=== PATIENT | female | born 1990 | race Caucasian/White ===

== ENCOUNTER 2018-01-14 12:19 | Emergency (ER) | END 2018-01-14 16:59 | disposition home or self-care (01) ==

== ENCOUNTER 2018-06-08 13:23 | Emergency (ER) | payer OTHER ==
[~2018-06-08] VITALS: Ht 160 cm; Wt 114.2 kg
[~2018-06-08 13:23] MED LIST: NAPR-985 PO; PNV1TABL43 PO
[2018-06-08 13:40] VITALS: RESP 20; Ht 160 cm; Wt 114.2 kg
[2018-06-08 14:02] VITALS: BP 144/76; PULSE 76
[2018-06-08] MEDS ORDERED: FAMOTIDINE 20 MG TAB PO STA (16:55)
[2018-06-08] MEDS ORDERED: ONDANSETRON (ODT) 4 MG TAB ODT STA (16:55)
--- NOTE | 2018-06-08 16:58 | ERD ---
ER Documentation Chief Complaint Chief Complaint c/o epigastric pain x1 day, had greasy, heavy food yesterday HPI 27-year-old female, previously healthy, presents to the emergency department, complaining of 1 day with sudden onset of epigastric pain, burning, constant, 6/10. After a heavy ingestion of tamales, beer and coffee. No treatment attempted at this time. The patient denies any previous history of liver disease or gallstones. No fever or chills, no nausea or vomiting. No diarrhea or constipation. ROS All systems reviewed and are negative except as per history of present illness. Medications Home Meds Active Scripts Acetaminophen* (Tylenol*) 325 Mg Tablet, 2 TAB PO Q8 PRN for PAIN AND OR ELEVATED TEMP, #20 TAB Prov:KEVON URIARTE MD 06/08/18 Ranitidine Hcl* (Zantac*) 150 Mg Tablet, 150 MG PO BID PRN for EPIGASTRIC PAIN, #30 TAB Prov:KEVON URIARTE MD 06/08/18 Naproxen* (Naprosyn*) 500 Mg Tablet, 500 MG PO BID PRN for PAIN AND/OR INFLAMMATION, #30 TAB Prov:JOLIE BRIGHT PA-C 01/14/18 Reported Medications Vit/Fe Fumarate/Fa* ( Vitamin Tablet*) 1 Tab Tablet, 1 TAB PO DAILY 06/23/13 Allergies Allergies: Coded Allergies: No Known Drug Allergy (Verified Allergy, Unknown, 03/14/15) PMhx/Soc Medical and Surgical Hx: pt denies Medical Hx, pt denies Surgical Hx History of Surgery: No Anesthesia Reaction: No Hx Neurological Disorder: No Hx Respiratory Disorders: No Hx Cardiac Disorders: No Hx Psychiatric Problems: No Hx Miscellaneous Medical Probl: No Hx Alcohol Use: Yes (occasional) Hx Substance Use: Yes (smokes marijuana daily) Hx Tobacco Use: No Physical Exam Vitals Vital Signs Date Temp Pulse Resp B/P (MAP) Pulse Ox O2 O2 Flow FiO2 Time Delivery Rate 06/08/18 76 144/76 14:02 (98) 06/08/18 98.6 87 20 171/95 99 13:40 (120) Physical Exam Const: No acute distress Head: Atraumatic Eyes: Normal Conjunctiva ENT: Normal External Ears, Nose and Mouth. Neck: Full range of motion. No meningismus. Resp: Clear to auscultation bilaterally Cardio: Regular rate and rhythm, no murmurs Abd: Soft, non tender, non distended. Normal bowel sounds Skin: No petechiae or rashes Back: No midline or flank tenderness Ext: No cyanosis, or edema Neur: Awake and alert Psych: Normal Mood and Affect Result Diagram: 06/08/18 1711 06/08/18 1711 Results 24 hrs Laboratory Tests Test 06/08/18 17:11 06/08/18 17:12 White Blood Count 13.0 10^3/ul Red Blood Count 5.42 10^6/ul Hemoglobin 15.4 g/dl Hematocrit 47.1 % Mean Corpuscular Volume 86.9 fl Mean Corpuscular Hemoglobin 28.4 pg Mean Corpuscular Hemoglobin Concent 32.7 g/dl Red Cell Distribution Width 13.7 % Platelet Count 281 10^3/UL Mean Platelet Volume 10.4 fl Immature Granulocytes % 0.400 % Neutrophils % 67.8 % Lymphocytes % 25.9 % Monocytes % 5.2 % Eosinophils % 0.1 % Basophils % 0.6 % Nucleated Red Blood Cells % 0.0 /100WBC Immature Granulocytes # 0.050 10^3/ul Neutrophils # 8.8 10^3/ul Lymphocytes # 3.4 10^3/ul Monocytes # 0.7 10^3/ul Eosinophils # 0.0 10^3/ul Basophils # 0.1 10^3/ul Nucleated Red Blood Cells # 0.0 10^3/ul Bedside Urine pH (LAB) 7.0 Bedside Urine Protein (LAB) Negative Bedside Urine Glucose (UA) Negative Bedside Urine Ketones (LAB) 1+ Bedside Urine Blood 1+ Bedside Urine Nitrite (LAB) Negative Bedside Urine Leukocyte Esterase (L Negative Sodium Level 142 mmol/L Potassium Level 3.9 mmol/L Chloride Level 106 mmol/L Carbon Dioxide Level 25 mmol/L Anion Gap 11 Blood Urea Nitrogen 8 mg/dl Creatinine 0.58 mg/dl Est Glomerular Filtrat Rate mL/min > 60 mL/min Glucose Level 109 mg/dl Calcium Level 10.1 mg/dl Total Bilirubin 0.3 mg/dl Direct Bilirubin 0.00 mg/dl Indirect Bilirubin 0.3 mg/dl Aspartate Amino Transf (AST/SGOT) 22 IU/L Alanine Aminotransferase (ALT/SGPT) 17 IU/L Alkaline Phosphatase 136 IU/L Total Protein 8.3 g/dl Albumin 4.9 g/dl Globulin 3.40 g/dl Albumin/Globulin Ratio 1.44 Lipase 120 U/L POC Beta HCG, Qualitative NEGATIVE Current Medications Medications Dose Sig/Shad Start Time Status Last (Trade) Ordered Route PRN Stop Time Admin Dose Reason Admin Famotidine 20 mg ONCE STAT 06/08/18 DC 06/08/18 (Pepcid) PO 16:55 06/08/18 17:15 17:00 Simethicone 160 mg ONCE ONCE 06/08/18 DC 06/08/18 (Mylicon) PO 17:00 06/08/18 17:15 17:01 Ondansetron 8 mg ONCE STAT 06/08/18 DC 06/08/18 HCl (Zofran ODT 16:55 06/08/18 17:15 Odt) 17:00 Patient: MIGUEL A HARRINGTON : 1990 Age: 27 Sex: F MR #: [id number] DOS: 06/08/18 1655 Ordering MD: KEVON URIARTE MD Location: [facility] Room/Bed: PROCEDURE: US Abdomen (right upper quadrant). CLINICAL INDICATION: Nausea. TECHNIQUE: Multiple real-time longitudinal and transverse images of the right upper quadrant of the abdomen were acquired utilizing a curved array transducer. Images were reviewed on a high-resolution PACS workstation. COMPARISON: None FINDINGS: The liver is normal in size and echotexture without focal mass or intrahepatic biliary dilatation. There is normal hepatopedal flow within the main portal vein. The gallbladder is well displayed without filling defects or wall thickening. The common bile duct measures 3.1 mm in maximal dimension. The visualized portions of the pancreas are unremarkable with obscuration of the tail of the pancreas. No free fluid is identified. The right kidney measures 9.9 cm in length. There is normal echogenicity within the right kidney. There is no perinephric fluid collection. No hydronephrosis, mass, or calculus is seen. IMPRESSION: 1. Unremarkable right upper quadrant ultrasound. RPTAT: [facility] Physician Cliff Date Time Electronically viewed and signed by Tian Cummings Physician on 06/08/2018 17:47 JH/ CC: KEVON URIARTE MD [phone] Procedures/MDM Vital signs stable. Differential diagnosis include but not limited to: Gastritis, gastroenteritis, cholelithiasis, cholecystitis, kidney stones, irritable bowel syndrome, inflammatory bowel syndrome, malabsorption syndrome, food intolerance, medication side effect, pancreatitis, diverticulitis, bowel obstruction. Physical examination and clinical presentation consistent most likely with acute gastritis. During the ED course the patient remained stable, no new complaints. The patient received treatment with p.o. Zofran, famotidine and simethicone, presenting overall improvement of the symptoms. Results and clinical impression discussed with the patient who agrees with management. The patient is stable to be treated outpatient and will be discharged home with a Rx for ranitidine and Tylenol, some side effects of prescribed medications (headache, rash, nausea, vomiting, diarrhea, drowsiness, habituation, bleeding, hypertension, interactions with other medications) were reviewed. Follow up with the primary care provider in the next 48h is recommended. If symptoms persist, worsen or new symptoms develop, then patient should return to the ED immediately. Instructions explained and given directly by me to the patient with acknowledgment and demonstrated understanding. Disclaimer: Inadvertent spelling and grammatical errors are likely due to EHR/dictation software use and do not reflect on the overall quality of patient care. Also, please note that the electronic time recorded on this note does not necessarily reflect the actual time of the patient encounter. Departure Diagnosis: Primary Impression: Epigastric pain Additional Impression: Gastritis Condition: Stable Patient Instructions: Gerd (Adult) Additional Instructions: Thank you very much for allowing us to participate in your care. Your health and safety is our top priority at [facility]. Call your primary care doctor TOMORROW for an appointment during the next 2-4 days and bring all the information and medications prescribed. Have prescriptions filled and follow precisely the directions on the label. If the symptoms get worse and your provider is unavailable, return to the Emergency Department immediately. KEVON URIARTE MD Jun 08, 2018 16:58
[2018-06-08] MEDS ORDERED: RANI150T35 PO (17:59)
[2018-06-08] MEDS ORDERED: ACET325T33 PO (17:59)
== END 2018-06-08 18:33 | disposition home or self-care (01) ==
LOC: FTE 13:23
DX: K29.70 Gastritis, unspecified, without bleeding (principal)
CPT/HCPCS: 36415; 76705; 80053; 81003; 81025; 83690; 85025; Z7502; Z7610